=== PATIENT | male | born 1960 ===

== ENCOUNTER 2016-07-28 11:25 | Emergency (ER) | payer OTHER ==
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
[2016-07-28] MEDS ORDERED: Lidocaine 5% Patch TD STA (12:14)
[2016-07-28] MEDS ORDERED: Lidocaine 5% Patch TD ONE (12:40)
[2016-07-28 12:49] VITALS: BP 105/69; PULSE 74; RESP 14; TEMP 98.2; O2SAT 99
== END 2016-07-28 12:49 | disposition home or self-care (01) ==
LOC: C.ER 11:25
DX: S16.1XXA Strain of muscle, fascia and tendon at neck level, initial encounter (principal); S39.012A Strain of muscle, fascia and tendon of lower back, initial encounter; V47.5XXA Car driver injured in collision with fixed or stationary object in traffic accident, initial encounter; Y92.410 Unspecified street and highway as the place of occurrence of the external cause

== ENCOUNTER 2016-08-11 08:10 | Emergency (ER) | payer OTHER ==
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
[2016-08-11] MEDS ORDERED: Moxifloxacin IV 400mg/250ml NS 400 MG/250 ML BAG IV ONE (10:04)
[2016-08-11 10:17] VITALS: BP 121/76; PULSE 58; RESP 16; TEMP 97.9; O2SAT 98
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
== END 2016-08-11 10:17 | disposition home or self-care (01) ==
LOC: C.ER 08:10
DX: S33.5XXA Sprain of ligaments of lumbar spine, initial encounter (principal); S09.90XA Unspecified injury of head, initial encounter; V48.5XXA Car driver injured in noncollision transport accident in traffic accident, initial encounter; R07.89 Other chest pain